=== PATIENT | male | born 1950 | race Caucasian/White ===

== ENCOUNTER 2017-10-01 16:45 | Observation (INO) | payer OTHER ==
[~2017-10-01] VITALS: Ht 182.9 cm; Wt 115.9 kg
[~2017-10-01 16:45] MED LIST: Aspirin Chewable PO; INDOCIN25 MG PO; LOTENSIN5 MG PO; SIMVASTATIN40 MG PO
[2017-10-01 18:39] LABS: HEMATOCRIT 37.8 % (38.0-50.0); HEMOGLOBIN 11.8 G/DL (12.5-16.6); MCH 25.4 PG (29.0-34.0); MCHC 31.2 G/DL (30.0-36.0); MCV 81.5 FL (86-99); PLATELET COUNT 320 K/uL (156-360); RBC DIS.WIDTH-SD 49.9 % (39-53); RED BLOOD COUNT 4.64 M/uL (4.00-5.50); WHITE BLOOD COUNT 8.7 K/uL (4.1-10.2)
[2017-10-01 18:48] LABS: ALBUMIN 4.1 g/dL (3.2-4.8); CHLORIDE 103 mEq/L (99-109); POTASSIUM 4.3 mEq/L (3.7-5.4); SODIUM 138 mEq/L (136-147)
[2017-10-01 18:51] LABS: GLUCOSE 148 mg/dL (70-99); TOTAL PROTEIN 7.9 g/dL (6.4-8.3)
[2017-10-01 18:53] LABS: TOTAL BILIRUBIN 0.5 mg/dL (0.0-1.0)
[2017-10-01 18:54] LABS: ALKALINE PHOSPHATASE 76 IU/L (3-129); CREATININE 1.3 mg/dL (0.6-1.3); GFR ESTIMATE (CALCULATED) 59 mL/min/ (58.99-99999)
[2017-10-01 18:55] LABS: UREA NITROGEN (BUN) 23 mg/dL (9-23)
[2017-10-01 18:56] LABS: AST (GOT) 28 IU/L (2-34)
[2017-10-01 18:57] LABS: ALT (GPT) 24 IU/L (3-49)
[2017-10-01 19:03] LABS: TROP-I INTERPRETATION NEGATIVE; TROPONIN-I < 0.01 ng/mL (0.0-0.30)
[2017-10-01 22:14] LABS: TROP-I INTERPRETATION NEGATIVE; TROPONIN-I 0.02 ng/mL (0.0-0.30)
[2017-10-01 22:30] LABS: D-DIMER ELISA < 150.00 ng/mLDDU (<230)
[2017-10-01] MEDS ORDERED: METOPROLOL SUC100 MG PO (23:27)
[2017-10-01] MEDS ORDERED: VENTOLIN HFA18 GM IH (23:29)
[2017-10-01] MEDS ORDERED: ADVAIR 250/501 DISK IH (23:40)
[2017-10-01] MEDS ORDERED: METOPROLOL SUCC50 MG PO (23:41)
[2017-10-01] MEDS ORDERED: OMEPRAZOLE40 M1 PO (23:43)
[2017-10-01] MEDS ORDERED: DIOVAN HCT 31 TABLET PO (23:44)
[2017-10-01] MEDS ORDERED: TRAMADOL HCL50 MG PO (23:47)
[2017-10-01 23:59] LABS: MAGNESIUM 2.6 mg/dL (1.3-2.7)
[2017-10-02] MEDS ORDERED: EXCEDRIN EXTRA1 EACH PO
[2017-10-02 01:30] LABS: TROP-I INTERPRETATION NEGATIVE; TROPONIN-I 0.01 ng/mL (0.0-0.30)
[2017-10-02 07:48] LABS: TROP-I INTERPRETATION NEGATIVE; TROPONIN-I 0.01 ng/mL (0.0-0.30)
[2017-10-02 07:54] LABS: CHLORIDE 101 MEQ/L (99-109); CREATININE 1.2 MG/DL (0.6-1.3); GFR ESTIMATE (CALCULATED) > 59 mL/min/ (58.99-99999); GLUCOSE 111 mg/dL (70-99); MAGNESIUM 2.5 mg/dl (1.3-2.7); POTASSIUM 4.2 MEQ/L (3.7-5.4); SODIUM 139 MEQ/L (136-147); UREA NITROGEN (BUN) 22 mg/dL (9-23)
[2017-10-02 07:57] LABS: HDL CHOLESTEROL 49 MG/DL (Desirable>=40); LDL CHOLESTEROL 149 mg/dL (Desirable<100); NON-HDL CHOLESTEROL 174 mg/dL (Desirable<160); TOTAL CHOLESTEROL 223 mg/dL (Desirable<200); TRIGLYCERIDES 124 MG/DL (Normal: <150)
[2017-10-02 08:28] LABS: THYROTROPIN (TSH) 3.9 MIU/L (0.4-5.5)
[2017-10-02] MEDS ORDERED: VERAPAMIL HCL240 MG PO (14:35)
[2017-10-02 15:10] VITALS: BP 131/80
[2017-10-02 15:12] VITALS: BP 131/80
== END 2017-10-02 15:20 | disposition home or self-care (01) ==
LOC: EME 16:45 → EDOF 22:14 → ENRESERV 22:16 → CANRESERV 10-02 11:19 → ENRESERV 10-02 11:19 → EDOF 10-02 15:20
PROVIDERS: Hospitalist; Nurse Practitioner Family; Physician Assistant Medical
DX: R07.9 Chest pain, unspecified (principal); R00.0 Tachycardia, unspecified; R06.09 Other forms of dyspnea; R94.31 Abnormal electrocardiogram [ECG] [EKG]; I10 Essential (primary) hypertension; E78.5 Hyperlipidemia, unspecified; R73.01 Impaired fasting glucose; Z82.49 Family history of ischemic heart disease and other diseases of the circulatory system; Z87.891 Personal history of nicotine dependence; F10.20 Alcohol dependence, uncomplicated; M79.89 Other specified soft tissue disorders
CPT/HCPCS: 71046; 80048; 80053; 80061; 82948; 83036; 83735; 83880; 84443; 84484; 85027; 85379; 93005; 93306; 99281; 99285; G0378; J1650; J1940; J7030

== ENCOUNTER 2017-12-16 11:59 | Emergency (ER) | payer OTHER ==
[~2017-12-16] VITALS: Ht 182.9 cm; Wt 113.6 kg
[~2017-12-16 11:59] MED LIST changes: +ADVAIR 250/501 DISK IH; +DIOVAN HCT 31 TABLET PO; +EXCEDRIN EXTRA1 EACH PO; +METOPROLOL SUC100 MG PO; +METOPROLOL SUCC50 MG PO; +OMEPRAZOLE40 M1 PO; +TRAMADOL HCL50 MG PO; +VENTOLIN HFA18 GM IH; +VERAPAMIL HCL240 MG PO
[2017-12-16 12:27] LABS: HEMATOCRIT 34.1 % (38.0-50.0); HEMOGLOBIN 9.9 G/DL (12.5-16.6); MCH 22.1 PG (29.0-34.0); MCV 76.3 FL (86-99); NRBC (%) 0.2 /100 WBC (0-0); PLATELET COUNT 404 K/uL (156-360); RBC DIS.WIDTH-SD 43.8 % (39-53); RED BLOOD COUNT 4.47 M/uL (4.00-5.50); WHITE BLOOD COUNT 8.6 K/uL (4.1-10.2)
[2017-12-16 12:35] LABS: ALBUMIN 4.1 g/dL (3.2-4.8); CHLORIDE 102 mEq/L (99-109); SODIUM 139 mEq/L (136-147)
[2017-12-16 12:37] LABS: GLUCOSE 153 mg/dL (70-99); TOTAL PROTEIN 7.6 g/dL (6.4-8.3)
[2017-12-16 12:39] LABS: TOTAL BILIRUBIN 0.8 mg/dL (0.0-1.0)
[2017-12-16 12:41] LABS: ALKALINE PHOSPHATASE 78 IU/L (3-129); CREATININE 1.2 mg/dL (0.6-1.3); GFR ESTIMATE (CALCULATED) > 59 mL/min/ (58.99-99999)
[2017-12-16 12:42] LABS: UREA NITROGEN (BUN) 16 mg/dL (9-23)
[2017-12-16 12:43] LABS: AST (GOT) 19 IU/L (2-34)
[2017-12-16 12:44] LABS: ALT (GPT) 20 IU/L (3-49)
[2017-12-16 13:54] VITALS: BP 106/86
[2017-12-26] MEDS ORDERED: GLUCOSAMINE-CH480 ML PO (10:00)
[2017-12-26] MEDS ORDERED: FEOSOL325 MG PO (10:01)
[2017-12-26] MEDS ORDERED: MULTIVITAMIN W1 EAC7 PO (10:01)
== END 2017-12-16 13:54 | disposition home or self-care (01) ==
LOC: EME 11:59
DX: D64.9 Anemia, unspecified (principal); J44.9 Chronic obstructive pulmonary disease, unspecified; K21.9 Gastro-esophageal reflux disease without esophagitis; E78.5 Hyperlipidemia, unspecified; I10 Essential (primary) hypertension; F32.9 Major depressive disorder, single episode, unspecified; Z87.891 Personal history of nicotine dependence
CPT/HCPCS: 80053; 85027; 93005; 99281; 99283